=== PATIENT | male | born 2005 | race Caucasian/White ===

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

== ENCOUNTER → 2024-01-08 | Outpatient (CLI) | payer OTHER, SELFPAY ==
--- NOTE | 2024-01-08 14:16 | RAD_ITS ---
STUDY: X-RAY - ABDOMEN/PELVIS REASON FOR EXAM: Male, 18 years old. Renal calculus. TECHNIQUE: Single AP view of the abdomen / pelvis. Upper abdomen not included on the image. COMPARISON: CT of the abdomen and pelvis dated 12/20/2023 FINDINGS: Normal bowel gas pattern with air seen to the rectosigmoid. No left calcification identified. RAD/Abdomen Single View IMPRESSION: No calcification identified in the area shown on CT on 12/20/2023. No acute finding. Electronically Signed: Alonzo Chen MD at 14:50 EST ,
== END | disposition home or self-care (01) ==
LOC: RAD 14:13
PROVIDERS: PCP Pediatrics; Referring Provider Nurse Practitioner; Visit Provider Nurse Practitioner
DX: N20.0 Calculus of kidney (principal)
CPT/HCPCS: 74018

== ENCOUNTER → 2024-01-19 | Outpatient (CLI) | payer OTHER, SELFPAY | END | disposition home or self-care (01) | LOC: LABSPEC 15:46 | PROVIDERS: PCP Pediatrics; Referring Provider Urology; Visit Provider Urology | DX: N20.1 Calculus of ureter (principal) | CPT/HCPCS: 82360 ==